=== PATIENT | female | born 1995 ===

== ENCOUNTER 2025-03-26 06:42 | Inpatient (IN) | payer SELFPAY ==
[2025-03-26] MEDS ORDERED: Ondansetron 4 MG/2 ML SDV ONE (06:55)
[2025-03-26] MEDS ORDERED: Dexamethasone 4 MG/ML 5 ML MDV ONE (06:55)
[2025-03-26] MEDS ORDERED: Ketorolac 30 MG/ML SDV ONE (06:55)
[2025-03-26] MEDS ORDERED: Propofol 200 MG/20 ML SDV ONE (06:55)
[2025-03-26] MEDS ORDERED: fentaNYL 100 MCG/2 ML SDV ONE ×2 (06:56→06:58)
[2025-03-26] MEDS ORDERED: Ropivacaine 0.5% 5 MG/ML 30 ML SDV ONE (07:17)
[2025-03-26] MEDS ORDERED: Oxytocin 10 Units/1 ML SDV ONE (07:26)
[2025-03-26] MEDS ORDERED: Carboprost Tromethamine 250 MCG/1 mL Vial IM PRN (08:04)
[2025-03-26] MEDS ORDERED: Sodium Chloride 0.9% 2.5 ML Syringe FLUSH PRN (08:04)
[2025-03-26] MEDS ORDERED: Sodium Chloride 0.9% 10 ML Syringe FLUSH PRN (08:04)
[2025-03-26] MEDS ORDERED: Naloxone 0.4 MG/ML SDV IVPUSH ONE (08:04)
[2025-03-26] MEDS ORDERED: fentaNYL 50 MCG/ML SDV IVPUSH PRN (08:14)
[2025-03-26] MEDS ORDERED: Ondansetron 4 MG/2 ML SDV IVPUSH PRN (08:14)
[2025-03-26] MEDS ORDERED: Naloxone 0.4 MG/ML SDV IVPUSH PRN (08:14)
[2025-03-26] MEDS ORDERED: Albuterol 0.083% 2.5 MG/3 ML Neb Soln NEB PRN (08:14)
[2025-03-26] MEDS ORDERED: Oxytocin/0.9 % Sodium Chloride 30 UNIT/500 ML BAG IV SCH (08:15)
[2025-03-26 08:22] LABS: PH,UMBILICAL ARTERIAL 7.06 (7.18-7.38); PH,UMBILICAL VENOUS 7.07 (7.25-7.45)
[2025-03-26] MEDS: Terbutaline 1 MG/ML SDV SUBCUT ONE (08:43)
[2025-03-26] MEDS ORDERED: Terbutaline 1 MG/ML SDV ONE (08:48)
[2025-03-26 09:26] LABS: MEAN PLATELET VOLUME 10.3 fL (9.4-12.3); NRBC ABSOLUTE 0.00 K/uL (0.00-0.02); NRBC PERCENT 0.0 /100WBC (0.0-0.2); PLATELET COUNT,PLT 265 K/uL (150-400); RED BLOOD CELL COUNT 3.70 M/uL (4.10-5.30); WHITE BLOOD CELL COUNT,WBC 24.29 K/uL (3.9-11.3)
[2025-03-26] MEDS: Ondansetron 4 MG/2 ML SDV IVPUSH PRN (11:16)
[2025-03-26 13:10] LABS: MEAN PLATELET VOLUME 9.9 fL (9.4-12.3); NRBC ABSOLUTE 0.00 K/uL (0.00-0.02); NRBC PERCENT 0.0 /100WBC (0.0-0.2); PLATELET COUNT,PLT 235 K/uL (150-400); RED BLOOD CELL COUNT 3.65 M/uL (4.10-5.30); WHITE BLOOD CELL COUNT,WBC 18.06 K/uL (3.9-11.3)
[2025-03-26 13:43] LABS: A/G RATIO 0.5 (0.9-1.6); ALANINE AMINOTRANSFERASE,ALT 17 IU/L (14-63); ASPARTATE AMNIOTRANSFERASE,AST 33 IU/L (15-37); BILIRUBIN TOTAL 0.3 mg/dL (0.2-1.0); BLOOD UREA NITROGEN,BUN 5 mg/dL (7.0-18.0); CARBON DIOXIDE,CO2 23.9 mmol/L (21.0-32.0); CHLORIDE,CL 103 mmol/L (98-107); CREATININE 0.7 mg/dL (0.6-1.0); GLUCOSE RANDOM 150 mg/dL (74-106); POTASSIUM,K 4.2 mmol/L (3.5-5.1); PROTEIN TOTAL,TP 5.0 g/dL (6.4-8.2); SODIUM,NA 135 mmol/L (136-145)
[2025-03-26 13:47] LABS: ESTIMATED GFR 119 mL/min (>60)
[2025-03-26] MEDS: Ketorolac 30 MG/ML SDV IVPUSH SCH (13:55)
[2025-03-27 06:20] LABS: BASOPHILS ABSOLUTE AUTO 0.04 K/uL (0.00-0.20); BASOPHILS PERCENT AUTO 0.2 % (0.0-1.0); EOSINOPHILS ABSOLUTE AUTO 0.05 K/uL (0.00-0.45); EOSINOPHILS PERCENT AUTO 0.3 % (0.0-6.0); IMMATURE GRAN ABSOLUTE AUTO 0.11 K/uL (0.00-0.05); IMMATURE GRAN PERCENT AUTO 0.6 % (0.0-0.4); LYMPHOCYTES ABSOLUTE AUTO 2.25 K/uL (1.00-4.80); LYMPHOCYTES PERCENT AUTO 13.1 % (24.0-44.0); MEAN PLATELET VOLUME 9.8 fL (9.4-12.3); MONOCYTES ABSOLUTE AUTO 1.27 K/uL (0.00-0.80); MONOCYTES PERCENT AUTO 7.4 % (0.0-8.0); NEUTROPHILS ABSOLUTE AUTO 13.40 K/uL (1.80-7.70); NEUTROPHILS PERCENT AUTO 78.4 % (41.0-71.0); NRBC ABSOLUTE 0.00 K/uL (0.00-0.02); NRBC PERCENT 0.0 /100WBC (0.0-0.2); PLATELET COUNT,PLT 261 K/uL (150-400); RED BLOOD CELL COUNT 3.78 M/uL (4.10-5.30); WHITE BLOOD CELL COUNT,WBC 17.12 K/uL (3.9-11.3)
== END 2025-03-27 21:05 | disposition home or self-care (01) | DRG 788 ==
LOC: MW.OBCHECK 06:42 → MW.OB 06:43 → MW.OBCHECK 07:15 → MW.OB 07:16 → MW.MS 03-27 08:36 → MW.OB 03-27 08:36
PROVIDERS: ADMIT Obstetrics & Gynecology; ATTEND Obstetrics & Gynecology
PROC: 4A1HXCZ Monitoring of Products of Conception, Cardiac Rate, External Approach (ICD-10-PCS; 2025-03-26)
PROC: 10D00Z1 Extraction of Products of Conception, Low, Open Approach (ICD-10-PCS; principal; 2025-03-26 07:00)
DX: O76 Abnormality in fetal heart rate and rhythm complicating labor and delivery (principal); Z3A.41 41 weeks gestation of pregnancy; Z37.0 Single live birth; O48.0 Post-term pregnancy; O77.0 Labor and delivery complicated by meconium in amniotic fluid
CPT/HCPCS: 36415; 59514; 74018; 74018-26; 80053; 82803; 85025; 85027; 86850; 86900; 86901; A9270-GY; J0166; J0456; J0665; J1100; J1885; J2003; J2270; J2371; J2405; J2590; J2704; J2795; J3010; J3105; J3490

== ENCOUNTER 2025-03-30 12:23 | Emergency (ER) | payer SELFPAY | END 2025-03-30 14:22 | disposition home or self-care (01) | LOC: MW.ED 12:23 | DX: R60.0 Localized edema (principal); Z75.3 Unavailability and inaccessibility of health-care facilities; Z79.899 Other long term (current) drug therapy | CPT/HCPCS: 93971-26-RT; 93971-RT; 99282; 99284 ==